=== PATIENT | male | born 1935 | race Two or more races ===

== ENCOUNTER 2016-04-15 15:02 | Inpatient (IN) | payer MEDICARE, OTHER ==
[~2016-04-15] VITALS: Ht 172.7 cm; Wt 74.4 kg
[2016-04-15] MEDS ORDERED: ALBUTEROL FS 2.5 MG/3 ML VIAL.NEB NEB ONE (15:30)
[2016-04-15] MEDS ORDERED: methylPREDNISolone SOD SUCC 125 MG/2ML VIAL IV ONE (15:30)
[2016-04-15] MEDS ORDERED: IPRATROPIUM NEB FS 0.5 MG/2.5 ML AMPUL.NEB NEB ONE (15:30)
[2016-04-15] MEDS ORDERED: methylPREDNISolone SOD SUCC 125 MG/2ML VIAL ONE (15:33)
[2016-04-15 15:42] LABS: BASOPHILS % (AUTO) 0.3 % (0.0-2.0); DIFF TOTAL % 100 %; EOSINOPHILS # (AUTO) 0.3 /CMM (0.0-0.7); EOSINOPHILS % (AUTO) 2.6 % (0.0-6.0); HEMATOCRIT 41 % (39-51); HEMOGLOBIN 13.4 g/dL (13.5-17.5); LYMPHOCYTES # (AUTO) 2.1 /CMM (0.8-4.8); LYMPHOCYTES % (AUTO) 17.9 % (20.0-44.0); MEAN CORPUSCULAR HEMOGLOBIN 28 PG (26.0-33.0); MEAN CORPUSCULAR HGB CONC 32 g/dl (31.0-36.0); MEAN CORPUSCULAR VOLUME 87 fL (80-96); MONOCYTES # (AUTO) 0.5 /CMM (0.1-1.30); MONOCYTES % (AUTO) 4.5 % (2.0-12.0); NEUTROPHILS # (AUTO) 8.6 /CMM (1.8-8.9); NEUTROPHILS % (AUTO) 74.7 % (43.0-81.0); PLATELET COUNT (AUTO) 239 /CMM (150-450); RED BLOOD CELL COUNT(AUTO) 4.76 MIL/uL (4.5-6.0); WHITE BLOOD COUNT (AUTO) 11.5 K/uL (4.3-11.0)
[2016-04-15] MEDS ORDERED: ALBUTEROL FS 2.5 MG/3 ML VIAL.NEB ONE (15:52)
[2016-04-15] MEDS ORDERED: IPRATROPIUM NEB FS 0.5 MG/2.5 ML AMPUL.NEB ONE (15:52)
[2016-04-15 15:56] LABS: CALCIUM, SERUM 8.8 mg/dL (8.5-10.1); POTASSIUM 4.1 mmol/L (3.5-5.1)
[2016-04-15 16:04] LABS: TROPONIN I 0.032 ng/mL (0.00-0.056)
[2016-04-15 16:08] LABS: ALBUMIN 3.3 g/dL (3.4-5.0); BILIRUBIN,DIRECT 0.1 mg/dL (0.0-0.2); BILIRUBIN,TOTAL 0.8 mg/dL (0.2-1.0); INDIRECT BILIRUBIN 0.7 mg/dL (0.0-1.1); TOTAL PROTEIN, SERUM 6.6 g/dL (6.4-8.2)
[2016-04-15] MEDS ORDERED: HYDROCODONE/APAP 5/325MG 1 EACH TABLET PO PRN (17:30)
[2016-04-15] MEDS ORDERED: Z GUARD REMEDY 2 OZ OINT TP PRN (17:30)
[2016-04-15] MEDS ORDERED: MAG HYDROX/AL HYDROX/SIMETH 30 ML UDC PO PRN (17:30)
[2016-04-15] MEDS: ENOXAPARIN SODIUM 40 MG/0.4 ML DISP.SYRIN SQ SCH (17:30)
[2016-04-15] MEDS ORDERED: ACETAMINOPHEN 325 MG TABLET PO PRN (17:30)
[2016-04-15] MEDS ORDERED: ONDANSETRON HCL/PF 4 MG/2 ML VIAL IVP PRN (17:30)
[2016-04-15] MEDS ORDERED: ZOLPIDEM TARTRATE 5 MG TABLET PO PRN (17:30)
[2016-04-15] MEDS ORDERED: ALBUTEROL FS 2.5 MG/0.5 ML VIAL.NEB NEB ONE (17:30)
[2016-04-15] MEDS ORDERED: LORAZEPAM 0.5 MG TABLET PO PRN (17:30)
[2016-04-15] MEDS: FUROSEMIDE 40 MG/4 ML VIAL IV SCH (18:01)
[2016-04-15] MEDS ORDERED: AMIO100T4 PO (18:30)
[2016-04-15] MEDS ORDERED: AMLO10TA2 PO (18:30)
[2016-04-15] MEDS ORDERED: ASPI81TA44 PO (18:30)
[2016-04-15] MEDS ORDERED: METO-302 PO (18:30)
[2016-04-15] MEDS ORDERED: OMEG1CAP40 PO (18:30)
[2016-04-15] MEDS ORDERED: FINA5TAB4 PO (18:30)
[2016-04-15] MEDS ORDERED: CLOP75TA2 PO (18:30)
[2016-04-15] MEDS ORDERED: ROSU10TA PO (18:30)
[2016-04-15] MEDS ORDERED: CLON1PAT13 TD (18:30)
[2016-04-15] MEDS ORDERED: IBUP-1955 PO (18:30)
[2016-04-15] MEDS ORDERED: CLOP100P MC (18:30)
[2016-04-15] MEDS ORDERED: VALS160T24 PO (18:30)
[2016-04-15 18:56] VITALS: BP 145/67
[2016-04-15] MEDS: methylPREDNISolone SOD SUCC 125 MG/2ML VIAL IV SCH (21:05)
[2016-04-15 22:00] VITALS: BP 129/73
[2016-04-16] VITALS: BP 131/70
[2016-04-16 04:00] VITALS: BP 132/81
[2016-04-16 07:10] LABS: BASOPHILS % (AUTO) 0.1 % (0.0-2.0); DIFF TOTAL % 100 %; HEMATOCRIT 44 % (39-51); HEMOGLOBIN 14.2 g/dL (13.5-17.5); LYMPHOCYTES # (AUTO) 1.4 /CMM (0.8-4.8); LYMPHOCYTES % (AUTO) 15.8 % (20.0-44.0); MEAN CORPUSCULAR HEMOGLOBIN 29 PG (26.0-33.0); MEAN CORPUSCULAR HGB CONC 33 g/dl (31.0-36.0); MEAN CORPUSCULAR VOLUME 88 fL (80-96); MONOCYTES % (AUTO) 0.3 % (2.0-12.0); NEUTROPHILS # (AUTO) 7.4 /CMM (1.8-8.9); NEUTROPHILS % (AUTO) 83.8 % (43.0-81.0); PLATELET COUNT (AUTO) 248 /CMM (150-450); RED BLOOD CELL COUNT(AUTO) 4.99 MIL/uL (4.5-6.0); WHITE BLOOD COUNT (AUTO) 8.9 K/uL (4.3-11.0)
[2016-04-16 08:00] VITALS: BP 129/66
[2016-04-16 08:05] LABS: CALCIUM, SERUM 9.2 mg/dL (8.5-10.1); CREATININE 1.1 mg/dL (0.6-1.3); PHOSPHORUS 2.9 mg/dL (2.5-4.9); POTASSIUM 3.9 mmol/L (3.5-5.1)
[2016-04-16] MEDS: MAGNESIUM HYDROXIDE 30 ML UDC PO PRN (11:19)
[2016-04-16] MEDS: FINASTERIDE (5 MG) 5 MG TABLET PO SCH (11:20)
[2016-04-16] MEDS: VALSARTAN 80 MG TABLET PO SCH ×2 (11:20→18:13)
[2016-04-16] MEDS: ASPIRIN EC 81 MG TABLET.DR PO SCH (11:20)
[2016-04-16] MEDS: IBUPROFEN 600 MG TABLET PO SCH ×2 (11:20→18:11)
[2016-04-16] MEDS: CLOPIDOGREL BISULFATE 75 MG TABLET PO SCH (11:20)
[2016-04-16] MEDS: AMIODARONE HCL 200 MG TABLET PO SCH (11:21)
[2016-04-16] MEDS: AMLODIPINE BESYLATE 10 MG TABLET PO SCH (11:21)
[2016-04-16] MEDS: ATORVASTATIN 10 MG TABLET PO SCH (11:22)
[2016-04-16] MEDS: PANTOPRAZOLE 40 MG TABLET.DR PO SCH (11:22)
[2016-04-16] MEDS: METOPROLOL SUCCINATE 25 MG TAB.SR.24H PO SCH (11:22)
[2016-04-16 11:24] LABS: THYROID STIMULATING HORMONE 0.414 uIU/mL (0.358-3.74)
[2016-04-16] MEDS: FUROSEMIDE 40 MG/4 ML VIAL IV SCH (11:24)
[2016-04-16] MEDS: methylPREDNISolone SOD SUCC 125 MG/2ML VIAL IV SCH ×4 (11:24→21:07)
[2016-04-16 12:00] VITALS: BP 142/66
[2016-04-16 16:00] VITALS: BP 117/52
[2016-04-16 20:00] VITALS: BP 139/71
[2016-04-16] MEDS: ENOXAPARIN SODIUM 40 MG/0.4 ML DISP.SYRIN SQ SCH (21:07)
[2016-04-17 08:00] VITALS: BP 143/73
[2016-04-17] MEDS ORDERED: FUROSEMIDE 40 MG TABLET PO SCH (09:00)
[2016-04-17] MEDS ORDERED: POTASSIUM CHLORIDE 20 MEQ TAB.PRT.SR PO SCH (09:00)
[2016-04-17 09:09] LABS: BILIRUBIN,TOTAL 0.8 mg/dL (0.2-1.0); CALCIUM, SERUM 9.5 mg/dL (8.5-10.1); PHOSPHORUS 4.6 mg/dL (2.5-4.9)
[2016-04-17 09:10] LABS: ALBUMIN 3.9 g/dL (3.4-5.0); TOTAL PROTEIN, SERUM 8.1 g/dL (6.4-8.2)
[2016-04-17] MEDS: MAGNESIUM HYDROXIDE 30 ML UDC PO PRN (09:47)
[2016-04-17] MEDS: PANTOPRAZOLE 40 MG TABLET.DR PO SCH (09:48)
[2016-04-17] MEDS: methylPREDNISolone SOD SUCC 125 MG/2ML VIAL IV SCH (09:48)
[2016-04-17] MEDS: ATORVASTATIN 10 MG TABLET PO SCH (09:48)
[2016-04-17] MEDS: IBUPROFEN 600 MG TABLET PO SCH (09:48)
[2016-04-17] MEDS: ASPIRIN EC 81 MG TABLET.DR PO SCH (09:48)
[2016-04-17] MEDS: FINASTERIDE (5 MG) 5 MG TABLET PO SCH (09:49)
[2016-04-17] MEDS: AMIODARONE HCL 200 MG TABLET PO SCH (09:49)
[2016-04-17] MEDS: CLOPIDOGREL BISULFATE 75 MG TABLET PO SCH (09:49)
[2016-04-17] MEDS: METOPROLOL SUCCINATE 25 MG TAB.SR.24H PO SCH (09:50)
[2016-04-17] MEDS: VALSARTAN 80 MG TABLET PO SCH (09:51)
[2016-04-17] MEDS: AMLODIPINE BESYLATE 10 MG TABLET PO SCH (09:55)
[2016-04-17 14:00] VITALS: BP 112/52
[2016-04-17] MEDS ORDERED: FLU VACC QS 2016-17(36MOS+)/PF 0.5 ML DISP.SYRIN IM ONE (15:00)
[2016-04-17] MEDS ORDERED: PNEUMOCOCCAL 23-VAL P-SAC VAC 0.5 ML VIAL SQ ONE (15:00)
== END 2016-04-17 15:30 | disposition home or self-care (01) | DRG 190 ==
LOC: ER 15:04 → TELE 16:52 → MED 04-16 11:39
PROVIDERS: ADMIT Internal Medicine; ATTEND Internal Medicine
DX: J44.1 Chronic obstructive pulmonary disease with (acute) exacerbation (principal); I50.23 Acute on chronic systolic (congestive) heart failure; J98.11 Atelectasis; I25.10 Atherosclerotic heart disease of native coronary artery without angina pectoris; E78.5 Hyperlipidemia, unspecified; I10 Essential (primary) hypertension; F41.9 Anxiety disorder, unspecified; F17.210 Nicotine dependence, cigarettes, uncomplicated; R09.89 Other specified symptoms and signs involving the circulatory and respiratory systems; I27.2 Other secondary pulmonary hypertension; I34.0 Nonrheumatic mitral (valve) insufficiency; I50.9 Heart failure, unspecified; I44.7 Left bundle-branch block, unspecified; Z87.01 Personal history of pneumonia (recurrent)
CPT/HCPCS: 36415; 71010-TC; 80048-TC; 80053-TC; 80076-TC; 82306; 83735-TC; 83880; 84100-TC; 84439-TC; 84443-TC; 84484-TC; 85025-TC; 87081-TC; 90732; 93307-TC; A4606; J1650; J1940; J2930; Q2036; Z7610

== ENCOUNTER 2016-07-13 12:00 | Inpatient (IN) | payer MEDICARE, OTHER ==
[~2016-07-13] VITALS: Ht 165.1 cm; Wt 86.2 kg
[~2016-07-13 12:00] MED LIST: AMIO100T4 PO; AMLO10TA2 PO; ASPI81TA44 PO; CLON1PAT13 TD; CLOP100P MC; CLOP75TA2 PO; FINA5TAB4 PO; IBUP-1955 PO; METO-302 PO; OMEG1CAP40 PO; ROSU10TA PO; VALS160T24 PO
[2016-07-13] MEDS ORDERED: FUROSEMIDE 40 MG/4 ML VIAL IV ONE (13:00)
[2016-07-13] MEDS ORDERED: FUROSEMIDE 40 MG/4 ML VIAL ONE (13:01)
--- NOTE | 2016-07-13 13:08 | NUR ---
TRACY AT BS.
[2016-07-13 13:17] LABS: BASOPHILS % (AUTO) 0.4 % (0.0-2.0); EOSINOPHILS # (AUTO) 0.2 /CMM (0.0-0.7); EOSINOPHILS % (AUTO) 1.6 % (0.0-6.0); HEMATOCRIT 43 % (39-51); HEMOGLOBIN 13.9 g/dL (13.5-17.5); LYMPHOCYTES # (AUTO) 1.7 /CMM (0.8-4.8); MEAN CORPUSCULAR HEMOGLOBIN 27 PG (26.0-33.0); MEAN CORPUSCULAR HGB CONC 32 g/dl (31.0-36.0); MEAN CORPUSCULAR VOLUME 84 fL (80-96); MONOCYTES # (AUTO) 0.5 /CMM (0.1-1.30); MONOCYTES % (AUTO) 5.2 % (2.0-12.0); NEUTROPHILS % (AUTO) 76.8 % (43.0-81.0); PLATELET COUNT (AUTO) 233 /CMM (150-450); RDW COEFFICIENT OF VARIATION 14.5 (11.5-15.0); WHITE BLOOD COUNT (AUTO) 10.4 K/uL (4.3-11.0)
[2016-07-13 13:35] LABS: CALCIUM, SERUM 9.1 mg/dL (8.5-10.1); CREATININE 1.1 mg/dL (0.6-1.3)
[2016-07-13 13:43] LABS: TROPONIN I 0.031 ng/mL (0.00-0.056)
[2016-07-13 13:45] LABS: INR 1.05 (0.87-1.13); PROTHROMBIN TIME 10.9 SECS (9.5-12.7)
--- NOTE | 2016-07-13 14:17 | NUR ---
PT ASSIGNED TELEMETRY BED 112-1 NURSE IS SUNDAY
--- NOTE | 2016-07-13 14:24 | NUR ---
REPORT GIVEN TO SUNDAY BELL FOR TELE ROOM 112-1
--- NOTE | 2016-07-13 14:25 | NUR ---
TELE1/RN REPORT FROM ER RECEIVED REPORT FROM ER NURSE ROSETTA FOR PT TO BE ADMITTED FOR CHF, UNDER THE CARE OF DR. GUAMAN. AWAITING FOR PT'S ARRIVAL.
[2016-07-13] MEDS ORDERED: ZOLPIDEM TARTRATE 5 MG TABLET PO PRN ×2 (14:30→15:00)
[2016-07-13] MEDS ORDERED: MAG HYDROX/AL HYDROX/SIMETH 30 ML UDC PO PRN ×2 (14:30→15:00)
[2016-07-13] MEDS ORDERED: ACETAMINOPHEN 325 MG TABLET PO PRN ×2 (14:30→15:00)
[2016-07-13] MEDS ORDERED: MAGNESIUM HYDROXIDE 30 ML UDC PO PRN ×2 (14:30→15:00)
[2016-07-13] MEDS ORDERED: Z GUARD REMEDY 2 OZ OINT TP PRN ×2 (14:30→15:00)
[2016-07-13] MEDS ORDERED: ONDANSETRON HCL/PF 4 MG/2 ML VIAL IVP PRN ×2 (14:30→15:00)
[2016-07-13] MEDS ORDERED: HYDROCODONE/APAP 5/325MG 1 EACH TABLET PO PRN ×2 (14:30→15:00)
--- NOTE | 2016-07-13 15:00 | NUR ---
TELE1/FUNERAL HOME GENERAL MANAGER TO TELE1 - ROOM 112 #1 PT ARRIVED IN UNIT VIA GURNEY. PT AMBULATED FROM GURNEY TO BED, WITH STEADY GAIT. PT A/O X 4, CAYMAN ISLANDER AND [place]ER SPEAKING, NO SHORTNESS OF BREATH NOTED. ON ROOM AIR SATURATING @ 100%, TELEMETRY READING, SINUS VINNY, HR 55. IV SITE FLUSHED, PATENT WITH NO S/S OF INFECTION. LUNG SOUNDS NOTED WITH MINIMAL WHEEZING BILATERALLY. NO EDEMA NOTED. SKIN INTACT. PT IS COMFORTABLE. AWAITING FOR ADMITTING ORDERS. CL WITHIN REACHED AND SAFETY MAINTAINED. ON GOING MONITORING.
[2016-07-13 16:00] VITALS: BP 133/79
[2016-07-13] MEDS ORDERED: CLON0.1T PO (16:21)
[2016-07-13] MEDS ORDERED: CARV12.52 PO (16:29)
[2016-07-13] MEDS ORDERED: ISOS30TA6 PO (16:29)
[2016-07-13] MEDS ORDERED: BENA40TA2 PO (16:29)
[2016-07-13] MEDS ORDERED: FURO40TA5 PO (16:29)
[2016-07-13] MEDS ORDERED: IBUPROFEN 600 MG TABLET PO SCH (17:00)
[2016-07-13] MEDS ORDERED: VALSARTAN 80 MG TABLET PO SCH (17:00)
[2016-07-13] MEDS ORDERED: CLONIDINE HCL 0.1 MG TABLET PO PRN (17:00)
[2016-07-13] MEDS: IBUPROFEN 600 MG TABLET PO SCH (17:53)
[2016-07-13] MEDS: VALSARTAN 80 MG TABLET PO SCH (17:54)
[2016-07-13] MEDS ORDERED: CLONIDINE HCL 0.2MG/24H PTWK 1 EA PATCH TD SCH ×2 (18:00)
[2016-07-13 20:00] VITALS: BP 147/64
--- NOTE | 2016-07-13 20:00 | NUR ---
TELE1/RN AM SHIFT END NOTES NO ACUTE CHANGE OF CONDITION NOTED SINCE PT WAS ADMITTED IN THE UNIT. NEEDS MET. PT ENDORSED TO PM NURSE TO CONTINUE CARE. CL WITHIN REACHED AND SAFETY MAINTAINED.
--- NOTE | 2016-07-13 20:39 | NUR ---
2D ECHO TO BE DONE TODAY, MILK BOTTLING MACHINE OPERATOR AT BEDSIDE. PER TECH PATIENT HAD 2D ECHO IN MARCH THIS YEAR. REPORT PLACED IN CHART.
[2016-07-13] MEDS: ATORVASTATIN 10 MG TABLET PO SCH (21:46)
[2016-07-13] MEDS ORDERED: ATORVASTATIN 10 MG TABLET PO SCH (22:00)
[2016-07-14] VITALS: BP_SYST 139; BP_SYST 146; BP_DIAS 69; BP_DIAS 74
[2016-07-14 04:00] VITALS: BP 160/70
[2016-07-14 06:35] LABS: BASOPHILS % (AUTO) 0.3 % (0.0-2.0); EOSINOPHILS # (AUTO) 0.4 /CMM (0.0-0.7); EOSINOPHILS % (AUTO) 4.4 % (0.0-6.0); HEMATOCRIT 46 % (39-51); HEMOGLOBIN 14.4 g/dL (13.5-17.5); MEAN CORPUSCULAR HEMOGLOBIN 27 PG (26.0-33.0); MEAN CORPUSCULAR HGB CONC 32 g/dl (31.0-36.0); MEAN CORPUSCULAR VOLUME 85 fL (80-96); MONOCYTES # (AUTO) 0.6 /CMM (0.1-1.30); MONOCYTES % (AUTO) 6.2 % (2.0-12.0); NEUTROPHILS # (AUTO) 6.9 /CMM (1.8-8.9); NEUTROPHILS % (AUTO) 69.1 % (43.0-81.0); PLATELET COUNT (AUTO) 241 /CMM (150-450); RDW COEFFICIENT OF VARIATION 15.2 (11.5-15.0); RED BLOOD CELL COUNT(AUTO) 5.35 MIL/uL (4.5-6.0)
[2016-07-14 06:37] LABS: CALCIUM, SERUM 8.9 mg/dL (8.5-10.1); CREATININE 1.1 mg/dL (0.6-1.3); POTASSIUM 3.3 mmol/L (3.5-5.1)
--- NOTE | 2016-07-14 07:28 | NUR ---
CASE SEALER CLOSING NOTES NO SIGNIFICANT CHANGES OVERNIGHT, NO COMPLAINS OF SOB, N/V. NO S/SX OF ACUTE DISTRESS NOTED. PT ON NASAL CANNULA 2L, AND TOLERATING IT WELL. ON STRICT I/O, ON TELE MONITOR SINUS VINNY, MOTIVATED OF SELF CARE, ALL NEEDS MET, CALL LIGHT WITHIN REACH. ENDORSED TO THE AM NURSE FOR CONTINUE OF CARE.
--- NOTE | 2016-07-14 07:30 | NUR ---
RN ENT INITIAL NOTES PT SITTING UP IN BED, NO COMPLAINS OF SOB, NO S/SX OF ACUTE DISTRESS NOTED. PT ON ROOM AIR SATURATING 97%, AND TOLERATING IT WELL. IV SL R UPPER ARM PATENT AND FLUSHED, ON STRICT I/O, USES URINAL, ON TELE MONITOR SINUS VINNY 50, MOTIVATED OF SELF CARE, BED LOCKED AND IN LOWEST POSITION, CALL LIGHTS WITHIN REACH.
[2016-07-14 08:00] VITALS: BP 142/61
--- NOTE | 2016-07-14 08:00 | NUR ---
TELE1/RN AM SHIFT INITIAL NOTES RECEIVED PT AWAKE SITTING IN BED, PT A/O X 4. DENIES ANY SYMPTOMS. NO ACUTE CHANGE OF CONDITION NOTED. ON ROOM AIR SATURATING @ 95%, LUNG SOUNDS CLEAR. ON TELE WITH SINUS VINNY, HR 53. IV SITE FLUSHED, PATENT WITH NO S/S OF INFECTION. HL. SCHEDULED AM MEDS TO BE GIVEN. PT IS COMFORTABLE AT THIS TIME. CL WITHIN REACHED AND SAFETY MAINTAINED. ON GOING MONITORING.
[2016-07-14] MEDS: VALSARTAN 80 MG TABLET PO SCH ×2 (08:43→16:51)
[2016-07-14] MEDS: ASPIRIN EC 81 MG TABLET.DR PO SCH (08:43)
[2016-07-14] MEDS: AMLODIPINE BESYLATE 10 MG TABLET PO SCH (08:43)
[2016-07-14] MEDS: IBUPROFEN 600 MG TABLET PO SCH ×2 (08:43→16:52)
[2016-07-14] MEDS: FINASTERIDE (5 MG) 5 MG TABLET PO SCH (08:44)
[2016-07-14] MEDS: AMIODARONE HCL 200 MG TABLET PO SCH (08:44)
[2016-07-14] MEDS: CLOPIDOGREL BISULFATE 75 MG TABLET PO SCH (08:44)
[2016-07-14] MEDS: METOPROLOL SUCCINATE 25 MG TAB.SR.24H PO SCH (08:44)
[2016-07-14] MEDS ORDERED: METOPROLOL SUCCINATE 25 MG TAB.SR.24H PO SCH (09:00)
[2016-07-14] MEDS ORDERED: CLOPIDOGREL BISULFATE 75 MG TABLET PO SCH (09:00)
[2016-07-14] MEDS ORDERED: AMIODARONE HCL 200 MG TABLET PO SCH (09:00)
[2016-07-14] MEDS ORDERED: ASPIRIN EC 81 MG TABLET.DR PO SCH (09:00)
[2016-07-14] MEDS ORDERED: AMLODIPINE BESYLATE 10 MG TABLET PO SCH (09:00)
[2016-07-14] MEDS ORDERED: Medication Not On Formulary EA (Rosuvastatin Calcium (Crestor) 10 MG) PO SCH (09:00)
[2016-07-14] MEDS ORDERED: Medication Not On Formulary EA (Omega-3 Fatty Acids/Fish Oil (Omega 3 1,000 Mg Softgel) PO SCH (09:00)
[2016-07-14] MEDS ORDERED: FINASTERIDE (5 MG) 5 MG TABLET PO SCH (09:00)
[2016-07-14] MEDS ORDERED: POTASSIUM CHLORIDE 20 MEQ TAB.PRT.SR PO SCH (10:30)
--- NOTE | 2016-07-14 11:10 | NUR ---
TELE1/RN CODE STATUS - CONFIRMED WITH PT'S SON AT BEDSIDE INTERPRETING. CODE STATUS VERIFIED THAT PT'S WANT FULL CODE WITH COMPRESSION ONLY, NO INTUBATION. CHARGE NURSE MADE AWARE.
[2016-07-14] MEDS ORDERED: BUMETANIDE INJ 8 MG in IV NS 0.9% 48 ML IV ONE (11:30)
[2016-07-14 11:36] LABS: TROPONIN I 0.031 ng/mL (0.00-0.056)
[2016-07-14 11:58] LABS: THYROID STIMULATING HORMONE 1.819 uIU/mL (0.358-3.74)
[2016-07-14 12:00] VITALS: BP 146/67
--- NOTE | 2016-07-14 12:00 | NUR ---
TELE1/RN NOON ROUNDS NO ACUTE CHANGE OF CONDITION NOTED. PT IS COMFORTABLE, MONITORING CONTINUED.
[2016-07-14] MEDS ORDERED: IV NS 0.9% 250 ML IV ONE (12:13)
[2016-07-14] MEDS ORDERED: SECONDARY IV SET 1 EA INFUS.SET MC ONE (12:13)
[2016-07-14] MEDS ORDERED: IV SET PRIMARY PUMP SET 1 EA INFUS.SET MC ONE (12:13)
[2016-07-14] MEDS: POTASSIUM CHLORIDE 20 MEQ TAB.PRT.SR PO SCH ×3 (12:21→15:24)
[2016-07-14] MEDS ORDERED: BUMETANIDE INJ 2 MG in IV NS 0.9% 32 ML IV ONE ×4 (14:30)
[2016-07-14 16:00] VITALS: BP 131/58
[2016-07-14] MEDS: CARVEDILOL 12.5 MG TABLET PO SCH (16:52)
[2016-07-14] MEDS: CLONIDINE HCL 0.1 MG TABLET PO SCH (18:05)
--- NOTE | 2016-07-14 19:14 | NUR ---
TELE1/RN AM SHIFT END NOTES NO ACUTE CHANGE OF CONDITION NOTED DURING THE SHIFT, LUNG SOUNDS IMPROVED COMPARED TO YESTERDAY. ALL NEEDS MET. PT ENDORSED TO PM NURSE TO CONTINUE CARE. CL WITHIN REACHED AND SAFETY MAINTAINED.
[2016-07-14 20:00] VITALS: BP 106/66
[2016-07-14] MEDS: ATORVASTATIN 10 MG TABLET PO SCH (21:36)
[2016-07-15] VITALS: BP 120/50
[2016-07-15] MEDS: CLONIDINE HCL 0.1 MG TABLET PO SCH ×2 (00:17→06:40)
[2016-07-15 04:00] VITALS: BP 115/58
[2016-07-15 07:14] LABS: BASOPHILS % (AUTO) 0.4 % (0.0-2.0); EOSINOPHILS # (AUTO) 0.5 /CMM (0.0-0.7); EOSINOPHILS % (AUTO) 5.2 % (0.0-6.0); HEMATOCRIT 45 % (39-51); HEMOGLOBIN 14.5 g/dL (13.5-17.5); LYMPHOCYTES # (AUTO) 2.2 /CMM (0.8-4.8); LYMPHOCYTES % (AUTO) 23.8 % (20.0-44.0); MEAN CORPUSCULAR HEMOGLOBIN 28 PG (26.0-33.0); MEAN CORPUSCULAR HGB CONC 32 g/dl (31.0-36.0); MEAN CORPUSCULAR VOLUME 85 fL (80-96); MONOCYTES # (AUTO) 0.7 /CMM (0.1-1.30); MONOCYTES % (AUTO) 7.9 % (2.0-12.0); NEUTROPHILS # (AUTO) 5.9 /CMM (1.8-8.9); NEUTROPHILS % (AUTO) 62.7 % (43.0-81.0); PLATELET COUNT (AUTO) 254 /CMM (150-450); RDW COEFFICIENT OF VARIATION 15.3 (11.5-15.0); RED BLOOD CELL COUNT(AUTO) 5.27 MIL/uL (4.5-6.0); WHITE BLOOD COUNT (AUTO) 9.4 K/uL (4.3-11.0)
[2016-07-15 07:29] LABS: TROPONIN I 0.022 ng/mL (0.00-0.056)
[2016-07-15 07:37] LABS: ALBUMIN 3.3 g/dL (3.4-5.0); BILIRUBIN,TOTAL 0.9 mg/dL (0.2-1.0); CALCIUM, SERUM 8.6 mg/dL (8.5-10.1); CREATININE 1.5 mg/dL (0.6-1.3); MAGNESIUM 2.1 mg/dL (1.8-2.4); PHOSPHORUS 4.4 mg/dL (2.5-4.9); POTASSIUM 3.8 mmol/L (3.5-5.1); TOTAL PROTEIN, SERUM 7.1 g/dL (6.4-8.2)
--- NOTE | 2016-07-15 07:53 | NUR ---
FUNCTIONAL CONSULTANT CLOSING NOTES NO SIGNIFICANT CHANGES OVERNIGHT, NO S/SX OF ACUTE DISTRESS NOTED. ON ROOM AIR SATURATING 98%, NO COMPLAINS OF SOB OR CHEST PAIN. ON STRICT I/O, ON TELE MONITOR SINUS VINNY 50, MOTIVATED OF SELF CARE, ASSISTED WITH AM ADLS, ALL NEEDS MET, CALL LIGHT WITHIN REACH. ENDORSED TO THE AM NURSE FOR CONTINUE OF CARE
[2016-07-15 08:00] VITALS: BP 126/64
[2016-07-15] MEDS ORDERED: BENAZEPRIL HCL 10 MG TABLET PO SCH (09:00)
[2016-07-15] MEDS ORDERED: ISOSORBIDE MONONITRATE (30MG) 30 MG TAB.SR.24H PO SCH (09:00)
[2016-07-15] MEDS: AMIODARONE HCL 200 MG TABLET PO SCH ×2 (09:00→09:11)
[2016-07-15] MEDS: CLOPIDOGREL BISULFATE 75 MG TABLET PO SCH (09:10)
[2016-07-15] MEDS: IBUPROFEN 600 MG TABLET PO SCH (09:10)
[2016-07-15] MEDS: AMLODIPINE BESYLATE 10 MG TABLET PO SCH (09:10)
[2016-07-15] MEDS: FINASTERIDE (5 MG) 5 MG TABLET PO SCH (09:10)
[2016-07-15] MEDS: CARVEDILOL 12.5 MG TABLET PO SCH (09:12)
[2016-07-15] MEDS: ASPIRIN EC 81 MG TABLET.DR PO SCH (09:14)
[2016-07-15] MEDS: METOPROLOL SUCCINATE 25 MG TAB.SR.24H PO SCH (11:06)
[2016-07-15 11:07] VITALS: BP 105/69
[2016-07-15] MEDS: VALSARTAN 80 MG TABLET PO SCH (11:07)
--- NOTE | 2016-07-15 11:09 | NUR ---
FLACA/RN: NOTES VERIFIED WITH DR. ROWENA GOMEZ TO GAVE ALL BP MEDICATIONS PER NETWORK DEVELOPER.
--- NOTE | 2016-07-15 12:15 | NUR ---
Valarie/RN: notes all discharge instruction gave to patient and his [id number], verbalize understanding, all patient's belongings and valuable returned and signed by patient, IV h/l removed from right AV, no bleeding noted, home medication and Rx education provided to patient, informed patient to follow up an appointment with Dr. Friedman for stress test and PCP in 2- 3 days, patient aware and agreed. patient is discharge via wheel chair with stable condition, patient denies chest pain, no shortness of breath noted.
[2016-07-16] MEDS ORDERED: REGADENOSON 0.4 MG/5 ML DISP.SYRIN IVP ONE (08:00)
== END 2016-07-15 13:03 | disposition home or self-care (01) | DRG 292 ==
LOC: ER 12:05 → TELE1 15:56 → MEDSG1 07-15 07:27
PROVIDERS: ADMIT Family Medicine; ATTEND Family Medicine
DX: I11.0 Hypertensive heart disease with heart failure (principal); N17.9 Acute kidney failure, unspecified; E78.5 Hyperlipidemia, unspecified; J44.9 Chronic obstructive pulmonary disease, unspecified; I25.10 Atherosclerotic heart disease of native coronary artery without angina pectoris; N40.0 Benign prostatic hyperplasia without lower urinary tract symptoms; R00.1 Bradycardia, unspecified; I50.43 Acute on chronic combined systolic (congestive) and diastolic (congestive) heart failure; T50.2X5A Adverse effect of carbonic-anhydrase inhibitors, benzothiadiazides and other diuretics, initial encounter; Y92.009 Unspecified place in unspecified non-institutional (private) residence as the place of occurrence of the external cause
CPT/HCPCS: 36415; 71010-TC; 80048-TC; 80053-TC; 80061-TC; 82962-TC; 83735-TC; 83880; 84100-TC; 84439-TC; 84443-TC; 84484-TC; 85025-TC; 85730-TC; 87081-TC; 94799-TC; A4216; A4606; J1940; J3490; J7050; Z7610

== ENCOUNTER 2016-07-20 11:58 | Inpatient (IN) | payer MEDICARE, MEDICAID ==
[~2016-07-20] VITALS: Ht 165.1 cm; Wt 85.3 kg
[~2016-07-20 11:58] MED LIST changes: -AMLO10TA2 PO; +BENA40TA2 PO; +CARV12.52 PO; +CLON0.1T PO; -CLON1PAT13 TD; -CLOP100P MC; -FINA5TAB4 PO; +FURO40TA5 PO; -IBUP-1955 PO; +ISOS30TA6 PO; -OMEG1CAP40 PO
[2016-07-20] MEDS ORDERED: ASPIRIN 325 MG TABLET ONE (12:14)
[2016-07-20] MEDS ORDERED: NITROGLYCERIN PACKET 1 GM PACKET ONE (12:14)
[2016-07-20] MEDS ORDERED: FUROSEMIDE 40 MG/4 ML VIAL ONE (12:14)
--- NOTE | 2016-07-20 12:15 | NUR ---
PT CAME IN FOR SOB X 1 YEAR, WORSENING IN THE PAST WEEK. SATING AT 95-96% RA. AT BS FOR EVAL. VSS. SAFETY AND COMFORT MEASURES PROVIDED.WILL MONITOR.
[2016-07-20 12:29] LABS: BASOPHILS # (AUTO) 0.1 /CMM (0.0-0.2); BASOPHILS % (AUTO) 0.5 % (0.0-2.0); EOSINOPHILS # (AUTO) 0.2 /CMM (0.0-0.7); EOSINOPHILS % (AUTO) 1.6 % (0.0-6.0); HEMATOCRIT 45 % (39-51); HEMOGLOBIN 14.6 g/dL (13.5-17.5); LYMPHOCYTES # (AUTO) 1.7 /CMM (0.8-4.8); LYMPHOCYTES % (AUTO) 15.7 % (20.0-44.0); MEAN CORPUSCULAR HEMOGLOBIN 28 PG (26.0-33.0); MEAN CORPUSCULAR HGB CONC 33 g/dl (31.0-36.0); MEAN CORPUSCULAR VOLUME 84 fL (80-96); MONOCYTES # (AUTO) 0.5 /CMM (0.1-1.30); MONOCYTES % (AUTO) 4.6 % (2.0-12.0); NEUTROPHILS # (AUTO) 8.5 /CMM (1.8-8.9); NEUTROPHILS % (AUTO) 77.6 % (43.0-81.0); PLATELET COUNT (AUTO) 224 /CMM (150-450); RDW COEFFICIENT OF VARIATION 14.3 (11.5-15.0); RED BLOOD CELL COUNT(AUTO) 5.31 MIL/uL (4.5-6.0)
[2016-07-20] MEDS ORDERED: NITROGLYCERIN PACKET 1 GM PACKET TD ONE (12:30)
[2016-07-20] MEDS ORDERED: FUROSEMIDE 40 MG/4 ML VIAL IV ONE (12:30)
[2016-07-20] MEDS ORDERED: ASPIRIN 325 MG TABLET PO ONE (12:30)
[2016-07-20 12:34] LABS: CALCIUM, SERUM 8.8 mg/dL (8.5-10.1); CREATININE 1.2 mg/dL (0.6-1.3); POTASSIUM 4.2 mmol/L (3.5-5.1)
[2016-07-20 12:38] LABS: INR 1.06 (0.87-1.13)
--- NOTE | 2016-07-20 12:38 | NUR ---
IV ACCESS STARTED. BLOOD DRAWN FOR LABS. PT MEDICATED ORDERED.
[2016-07-20 12:42] LABS: TROPONIN I 0.026 ng/mL (0.00-0.056)
[2016-07-20 12:47] LABS: ALBUMIN 3.4 g/dL (3.4-5.0); BILIRUBIN,DIRECT 0.3 mg/dL (0.0-0.2); BILIRUBIN,TOTAL 1.3 mg/dL (0.2-1.0); TOTAL PROTEIN, SERUM 7.2 g/dL (6.4-8.2)
--- NOTE | 2016-07-20 13:10 | NUR ---
ASSIGNED 309A NURSE SHANA KRAFT
--- NOTE | 2016-07-20 13:20 | NUR ---
REPORT GIVEN TO SWAPNIL BELL FOR TELE ROOM 309-1
--- NOTE | 2016-07-20 14:55 | NUR ---
JUNIOR ELECTRICAL ENGINEER ADMITTING NOTES PATIENT ADMITTED TO UNIT AT 1415 ACCOMPANIED BY [id number] AND ER STAFF VIA KATIE. ALERT AND ORIENTED X 4 WITH 02 VIA N/C AT 2 LPM, NO SIGNS OF RESPIRATORY DISTRESS OBSERVED AND DENIES ANY PAIN ON ADMISSION. PATIENT WITH DIAGNOSIS OF CHF WITH CHIEF COMPLAIN OF SOB X1 YEAR BUT WORSENING IN THE PAST WEEK. PATIENT ALSO HAVE SIGNIFICANT DIAGNOSIS OF COPD, HTN AND INGUINAL HERNIA REPAIR 10 YRS AGO. PATIENT ABLE TO AMBULATE AND TRANSFERRED TO BED WITHOUT PROBLEM. V/S TAKEN AND RECORDED. PHOTOS OF SKIN MOLES TO BACK, SWOLLEN SCROTOM AND DISCOLORATION TO LEFT HAND TAKEN AND FILED ON CHART. PATIENT PLACED ON TELE-MONITORING WITH READING OF SINUS VINNY WITH IST DEGREE HEART BLOCK AND HR OF 47, NO COMPLAINTS OF CHEST PAIN, DIZZINESS OR PALPITATION VOICED. ALL ROUTINE ADMISSION DONE. CALL LIGHT KEPT WITHIN REACH OF PATIENT. BED PLACE AT LOW POSSIBLE POSITION AND LOCK. MD MADE AWARE OF ADMISSION. WILL CONTINUE TO MONITOR PATIENT'S STATUS.
[2016-07-20] MEDS ORDERED: HYDROCODONE/APAP 5/325MG 1 EACH TABLET PO PRN (15:30)
[2016-07-20] MEDS ORDERED: Z GUARD REMEDY 2 OZ OINT TP PRN (15:30)
[2016-07-20] MEDS ORDERED: ONDANSETRON HCL/PF 4 MG/2 ML VIAL IVP PRN (15:30)
[2016-07-20] MEDS ORDERED: ZOLPIDEM TARTRATE 5 MG TABLET PO PRN (15:30)
[2016-07-20] MEDS ORDERED: MAGNESIUM HYDROXIDE 30 ML UDC PO PRN (15:30)
[2016-07-20] MEDS ORDERED: MAG HYDROX/AL HYDROX/SIMETH 30 ML UDC PO PRN (15:30)
[2016-07-20] MEDS ORDERED: ACETAMINOPHEN 325 MG TABLET PO PRN (15:30)
[2016-07-20 16:00] VITALS: BP 116/55
[2016-07-20 16:26] LABS: ABG BASE EXCESS -0.1 mmol/L; ABG OXYGEN SATURATION 92.7 % (92.0-98.5); ABG PCO2 37.1 mmHg (35.0-45.0); ABG PH 7.427 (7.350-7.450); ABG TOTAL HEMOGLOBIN 14.2 G/dL (13.5-18.0); AaDO2 43.3 mmHg; COHb 1.1 % (0.5-1.5); MetHb 0.4 % (0.0-1.5); O2Hb 91.3 % (94.0-97.0); SITE, ABG Right Radial; VENT MODE, BG ROOM AIR
[2016-07-20] MEDS: ASPIRIN EC 81 MG TABLET.DR PO SCH (16:47)
[2016-07-20] MEDS: CLOPIDOGREL BISULFATE 75 MG TABLET PO SCH (16:47)
[2016-07-20] MEDS: PANTOPRAZOLE 40 MG TABLET.DR PO SCH (16:47)
[2016-07-20] MEDS: CARVEDILOL 12.5 MG TABLET PO SCH (16:49)
[2016-07-20] MEDS: FUROSEMIDE 20 MG/2 ML VIAL IV SCH (16:51)
[2016-07-20] MEDS ORDERED: BUMETANIDE INJ 0.25 MG/ML VIAL IV SCH (17:00)
--- NOTE | 2016-07-20 17:16 | NUR ---
TELE/RN CLOSING NOTES PATIENT RESTING IN BED IN NO ACUTE SIGNS OF DISTRESS. ALERT AND ORIENTED X4, DENIES ANY PAIN OR DISCOMFORTS SINCE ADMISSION. MAINTAINED ON SUPPLEMENTAL 02 VIA N/C @ 2LPM, BREATHING WELL WITH NO SOB AT THIS TIME. ALL NEEDS AND CARE PROVIDED WELL. ALL DUE MEDS GIVEN ORDERED. IV ACCESS ON LEFT AC INTACT AND PATENT. BED IN LOWEST POSITION, LOCKED WITH SIDE-RAILS UP APPROPRIATE. CALL LIGHT WITHIN REACH. ALL SAFETY MEASURES MAINTAINED. ENDORSED TO CHLORINATOR NURSE TO CONTINUE CARE.
[2016-07-20] MEDS: CLONIDINE HCL 0.1 MG TABLET PO SCH (18:00)
--- NOTE | 2016-07-20 18:11 | NUR ---
RN NOTES PER RT, PT'S ABG RESULTS IS NORMAL. TROPONIN 1 LEVEL IS 0.032 AND BNP IS HIGH 2637. ALSO NOTED WITH BP OF 102/52MMHG AND HR OF 45 AT 6PM, MD MADE AWARE. WILL CONTINUE TO MONITOR PATIENT'S STATUS.
--- NOTE | 2016-07-20 19:30 | NUR ---
RN NOTES RECEIVED PT AWAKE ON BED, A/OX3, ARABIC/ CAY[place] ISLANDER SPEAKING BUT PT. CAN SPEAK A LITTLE BIT OF CROATIAN, AMBULATORY, GRANDSON AT BEDSIDE, SB ON TELE MONITOR HR-56, DENIES PAIN, NO SOB, CALL LIGHT WITHIN REACH, SIDERAILS UPX2 CONTINUE TO MONITOR
[2016-07-20 20:00] VITALS: BP 140/71
[2016-07-21] VITALS: BP_SYST 117; BP_SYST 120; BP_DIAS 68
[2016-07-21] MEDS: CLONIDINE HCL 0.1 MG TABLET PO SCH ×2 (00:05→06:00)
--- NOTE | 2016-07-21 00:30 | NUR ---
RN NOTES PT . COMPLAINED OF SOMETHING WRONG ON HIS HEART, CALLED ICU CHARGE NURSE WHO SPEAK BURUNDIAN. ICU CHARGE NURSE TALKED TO THE PT. AND EXPLAINED EVERYTHING . PUT OXYGEN AND CHECKED PT. V/S WHICH IS STABLE AND BLOOD SUGAR. ICU NURSE TOLD ME JUST MONITOR THE PT.
--- NOTE | 2016-07-21 00:45 | NUR ---
RN NOTES EKG DONE, -SAME RESULT WHEN PT ADMITTED
[2016-07-21] MEDS ORDERED: AMLO10TA4 PO (00:49)
[2016-07-21] MEDS ORDERED: FINA5TAB4 PO (00:49)
[2016-07-21] MEDS ORDERED: ROFL500T PO (00:49)
[2016-07-21] MEDS ORDERED: OMEG1CAP55 PO (00:49)
[2016-07-21] MEDS ORDERED: TEMA30CA PO (00:49)
[2016-07-21] MEDS ORDERED: METO25TA3 PO (00:49)
[2016-07-21] MEDS ORDERED: ROSU10TA PO (00:49)
[2016-07-21] MEDS ORDERED: CLON0.1T14 PO (00:49)
--- NOTE | 2016-07-21 01:00 | NUR ---
RN NOTES PT. MOVED TO ANOTHER ROOM BECAUSE ROOM MATE IS COMPLAINING ABOUT THE LIGHT WHILE MONITORING THE PT. PT MOVED TO ANOTHER ROOM AND DENIES ANY PAIN, PT. STATED OXYGEN HELPS HIM
[2016-07-21 04:00] VITALS: BP 143/70
--- NOTE | 2016-07-21 06:18 | NUR ---
RN NOTES CLONIDINE 0.1MG PO WAS NOT GIVEN AT THIS TIME, PT STATED HE'S TAKING IT ONLY NEEDED, CHECK PT. HOME MEDICATION IT'S ALSO WRITTEN TAKEN ONLY NEEDED
--- NOTE | 2016-07-21 06:45 | NUR ---
RN NOTES AWAKE, DENIES PAIN, NO SOB, MORNING CARE RENDERED. PT. NEEDS ATTENDED
[2016-07-21 06:56] VITALS: BP 135/61
--- NOTE | 2016-07-21 07:23 | NUR ---
TELE/RN OPENING NOTES RECEIVED PATIENT IN BED AWAKE, ALERT AND ORIENTED X4 IN NO ACUTE SIGNS OF DISTRESS. ABLE TO MAKE NEEDS KNOWN, DENIES PAIN OR DISCOMFORTS AT THIS TIME. ON TELE-MONITORING WITH CURRENT READING OF SINUS RHYTHM AND HR 65. ON 02 VIA N/C, TOLERATING WELL WITH SP02 OF 96%. IV ACCESS ON LEFT AC G#20 INTACT AND PATENT. BED IN LOWEST POSITION, LOCKED AND SIDE-RAILS UP APPROPRIATE. CALL LIGHT WITHIN REACH. ALL SAFETY MEASURES MAINTAINED. WILL CONTINUE TO MONITOR ACCORDINGLY.
[2016-07-21 07:51] LABS: BASOPHILS % (AUTO) 0.5 % (0.0-2.0); EOSINOPHILS # (AUTO) 0.4 /CMM (0.0-0.7); EOSINOPHILS % (AUTO) 4.5 % (0.0-6.0); HEMATOCRIT 45 % (39-51); HEMOGLOBIN 14.6 g/dL (13.5-17.5); LYMPHOCYTES # (AUTO) 2.1 /CMM (0.8-4.8); LYMPHOCYTES % (AUTO) 21.4 % (20.0-44.0); MEAN CORPUSCULAR HEMOGLOBIN 28 PG (26.0-33.0); MEAN CORPUSCULAR HGB CONC 33 g/dl (31.0-36.0); MEAN CORPUSCULAR VOLUME 85 fL (80-96); MONOCYTES # (AUTO) 0.6 /CMM (0.1-1.30); MONOCYTES % (AUTO) 6.5 % (2.0-12.0); NEUTROPHILS # (AUTO) 6.5 /CMM (1.8-8.9); NEUTROPHILS % (AUTO) 67.1 % (43.0-81.0); PLATELET COUNT (AUTO) 231 /CMM (150-450); RDW COEFFICIENT OF VARIATION 15.5 (11.5-15.0); RED BLOOD CELL COUNT(AUTO) 5.29 MIL/uL (4.5-6.0); WHITE BLOOD COUNT (AUTO) 9.6 K/uL (4.3-11.0)
[2016-07-21 08:00] VITALS: BP 134/71
[2016-07-21 08:30] LABS: ALBUMIN 3.2 g/dL (3.4-5.0); BILIRUBIN,TOTAL 0.8 mg/dL (0.2-1.0); CALCIUM, SERUM 8.7 mg/dL (8.5-10.1); CREATININE 1.2 mg/dL (0.6-1.3); MAGNESIUM 2.1 mg/dL (1.8-2.4); PHOSPHORUS 3.2 mg/dL (2.5-4.9); POTASSIUM 3.7 mmol/L (3.5-5.1)
[2016-07-21] MEDS: PANTOPRAZOLE 40 MG TABLET.DR PO SCH (08:41)
[2016-07-21] MEDS: ASPIRIN EC 81 MG TABLET.DR PO SCH (08:41)
[2016-07-21] MEDS: ATORVASTATIN 10 MG TABLET PO SCH (08:43)
[2016-07-21] MEDS: FUROSEMIDE 20 MG/2 ML VIAL IV SCH (08:44)
[2016-07-21] MEDS: CLOPIDOGREL BISULFATE 75 MG TABLET PO SCH (08:44)
[2016-07-21] MEDS: CARVEDILOL 12.5 MG TABLET PO SCH ×2 (08:44→21:00)
[2016-07-21] MEDS: VALSARTAN 80 MG TABLET PO SCH ×2 (08:49→16:56)
[2016-07-21] MEDS: ISOSORBIDE MONONITRATE (30MG) 30 MG TAB.SR.24H PO SCH (08:49)
[2016-07-21] MEDS ORDERED: BENAZEPRIL HCL 20 MG TABLET PO SCH (09:00)
[2016-07-21] MEDS: AMIODARONE HCL 200 MG TABLET PO SCH (09:30)
[2016-07-21] MEDS ORDERED: CLONIDINE HCL 0.1 MG TABLET PO PRN (10:00)
[2016-07-21] MEDS ORDERED: FUROSEMIDE 20 MG/2 ML VIAL IV ONE (10:30)
[2016-07-21 12:00] VITALS: BP 102/51
[2016-07-21 16:17] VITALS: BP 117/53
[2016-07-21] MEDS ORDERED: FUROSEMIDE 20 MG/2 ML VIAL IV SCH (17:00)
--- NOTE | 2016-07-21 18:45 | NUR ---
TELE/RN CLOSING NOTES PATIENT IN BED ALERT AND ORIENTED X3, NO COMPLAINTS OF PAIN OR ACUTE DISTRESS THROUGHOUT THE DAY. ALL NEEDS AND CARE PROVIDED. DUE MEDS GIVEN ORDERED AND TOLERATED. CONTINUES ON TELE MONITORING WITH CURRENT READINGS OF SINUS BRADYCARDIA WITH HR OF 56. ON SUPPLEMENTAL 02 VIA N/C @ 3LPM, BREATHING WELL WITH NO SOB NOTED. IV ACCESS ON LEFT AC INTACT AND PATENT. BED KEPT IN LOWEST POSITION, LOCKED WIT SIDE-RAILS UP X2. CALL LIGHT WITHIN REACH. ALL SAFETY MEASURES MAINTAINED. ENDORSED TO PREPARED FOODS PRODUCTION TEAM MEMBER FOR CANDIDA..
--- NOTE | 2016-07-21 19:35 | NUR ---
TELE/OPENING NOTES PATIENT IN BED , ALERT , ORIENTED X3. FAMILY AT BEDSIDE. NO S/S OF SOB OR DISTRESS. CALL LIGHTS WITHIN REACH, BED ON LOCK POSITION. WILL CONTINUE TO PROVIDE CARE AND MONITOR. ON TELE READING FOR MONITORING AT SR 60'S.
--- NOTE | 2016-07-22 00:09 | NUR ---
TELE/RN NOTES PATIENT SITTING IN THE CHAIR, ABLE TO WALK AND VERBALIZE NEEDS. ASSISTANCE AT ALL TIMES FOR SAFETY . VERBALIZED THE NEED TO CHANGE ROOM AND INFORMED CHARGE NURSE FOR ACCOMODATION. INFORM THAT WILL LOOK FOR AVAILABLE ONE BUT IF CAN BE PROVIDED CARE FOR NOW IN PRESENT ROOM. VITAL SIGNS CHECK 147/68, PULSAE-65, OXYGEN SATURATION AT 97% ON RA. WILL CONTINUE TO MONITOR AND PROVIDE NEEDED CARE.
--- NOTE | 2016-07-22 06:44 | NUR ---
tele/rn closing notes PATIENT AWAKE, ALERT X2. CAN SPEAK LITTLE THAI BUT COOPERATIVE TO CARE. ABLE TO AMBULATE BUT INFORM TO CALL FOR ASSISTANCE.WILL ENDORSE TO AM RN FOR CONTINUITY OF CARE.
--- NOTE | 2016-07-22 07:30 | NUR ---
MS RN RECEIVED ON BED,AWAKE,ALERT,ORIENTED X3, NOT IN ANY FORM OF DISTRESS,RESPIRATIONS EVEN AND UNLABORED,NO SOB NOTED, LUNGS ARE CLEAR,ABDOMEN SOFT,POSITIVE BOWEL SOUNDS,DENIES PAIN AT THIS TIME, WILL MONITOR PATIENT'S CONDITION.
[2016-07-22 08:00] VITALS: BP 120/55
--- NOTE | 2016-07-22 08:30 | NUR ---
MS BELL BREAKFAST SERVED,DUE MEDS GIVEN,TOLERATED WELL.
[2016-07-22] MEDS ORDERED: METOPROLOL SUCCINATE 25 MG TAB.SR.24H PO SCH (09:00)
[2016-07-22] MEDS: ATORVASTATIN 10 MG TABLET PO SCH (09:02)
[2016-07-22] MEDS: PANTOPRAZOLE 40 MG TABLET.DR PO SCH (09:03)
[2016-07-22] MEDS: ASPIRIN EC 81 MG TABLET.DR PO SCH (09:03)
[2016-07-22] MEDS: CLOPIDOGREL BISULFATE 75 MG TABLET PO SCH (09:03)
[2016-07-22] MEDS: AMIODARONE HCL 200 MG TABLET PO SCH (09:04)
[2016-07-22] MEDS: ISOSORBIDE MONONITRATE (30MG) 30 MG TAB.SR.24H PO SCH (09:04)
[2016-07-22] MEDS: CARVEDILOL 12.5 MG TABLET PO SCH ×2 (09:04→20:58)
[2016-07-22] MEDS: VALSARTAN 80 MG TABLET PO SCH ×2 (09:05→18:11)
[2016-07-22] MEDS ORDERED: FUROSEMIDE 20 MG/2 ML VIAL IV ONE (10:30)
[2016-07-22 10:57] LABS: CALCIUM, SERUM 8.8 mg/dL (8.5-10.1); CREATININE 1.4 mg/dL (0.6-1.3); POTASSIUM 3.2 mmol/L (3.5-5.1)
[2016-07-22 11:03] LABS: ALBUMIN 3.5 g/dL (3.4-5.0); BILIRUBIN,TOTAL 0.8 mg/dL (0.2-1.0); TOTAL PROTEIN, SERUM 7.6 g/dL (6.4-8.2)
[2016-07-22 12:00] VITALS: BP 120/59
[2016-07-22] MEDS ORDERED: POTASSIUM CHLORIDE 20 MEQ POWDER PACKET PO ONE (13:30)
[2016-07-22 16:00] VITALS: BP 112/62
--- NOTE | 2016-07-22 19:47 | NUR ---
TELE/RN OPENING NOTES PT AWAKE, SITTING UP AT THE EDGE OF THE BED. ON ROOM AIR, NO SOB OR DISTRESS NOTED. ON TELE MONITOR, READING SINUS RHYTHM AT 55. IV TO LAC PATENT AND INTACT. DENIES PAIN. SPEAKS FARO[place] ISLANDER BUT UNDERSTANDS A LITTLE BIT OF UPPER SORBIAN. BED IN LOW/LOCKED POSITION WITH CALL LIGHT IN REACH. BED RAILS UPX2. WILL CONTINUE TO MONITOR
[2016-07-22 20:00] VITALS: BP 118/54
--- NOTE | 2016-07-22 21:04 | NUR ---
TELE/RN NOTES NON-ADMINISTERED 2100 COREG. HEART RATE=54
[2016-07-23] VITALS (7 sets, daily range): BP systolic 107–156; BP diastolic 52–98
--- NOTE | 2016-07-23 00:58 | NUR ---
TELE/RN NOTES PT ASLEEP, BREATHING EVEN AND UNLABORED. WILL CONTINUE TO MONITOR
--- NOTE | 2016-07-23 06:51 | NUR ---
TELE/RN CLOSING NOTES PT AWAKE, ON 2LPM O2 VIA NC, NO S/S OF SOB OR DISTRESS. DENIES PAIN. ON TELE MONITOR, SINUS RHYTHM WITH HEART RATE AT 71. IV TO LAC PATENT AND INTACT. MADE PT COMFORTABLE THROUGHOUT SHIFT. NO CHANGES OVERNIGHT. ALL NEEDS MET AND ATTENDED TO. BED IN LOW/LOCKED POSITION. CALL LIGHT IN REACH. BED RAILS UPX2. WILL ENDORSE TO AM SHIFT CANDIDA.
--- NOTE | 2016-07-23 07:10 | NUR ---
DATABASE DEVELOPMENT PROJECT MANAGER NOTE: RECEIVED PATIENT WHILE RESTING IN BED, A/OX 3. BREATHING EVEN AND UNLABORED ON ROOM AIR. NO SOB, NO DISTRESS. PATIENTS NEEDS ATTENDED TO, SAFETY MEASURES IN PLACE, WILL CONTINUE TO MONITOR.
[2016-07-23] MEDS: ASPIRIN EC 81 MG TABLET.DR PO SCH (08:00)
[2016-07-23] MEDS: CLOPIDOGREL BISULFATE 75 MG TABLET PO SCH (08:00)
[2016-07-23] MEDS: PANTOPRAZOLE 40 MG TABLET.DR PO SCH (08:00)
[2016-07-23] MEDS: VALSARTAN 80 MG TABLET PO SCH ×2 (08:01→16:32)
[2016-07-23] MEDS: CARVEDILOL 12.5 MG TABLET PO SCH ×2 (08:01→20:20)
[2016-07-23] MEDS: AMIODARONE HCL 200 MG TABLET PO SCH (08:01)
[2016-07-23] MEDS: ATORVASTATIN 10 MG TABLET PO SCH (08:01)
[2016-07-23] MEDS: ISOSORBIDE MONONITRATE (30MG) 30 MG TAB.SR.24H PO SCH (09:26)
[2016-07-23 10:43] LABS: CALCIUM, SERUM 8.8 mg/dL (8.5-10.1); CREATININE 1.3 mg/dL (0.6-1.3); POTASSIUM 3.7 mmol/L (3.5-5.1)
[2016-07-23 10:49] LABS: ALBUMIN 3.5 g/dL (3.4-5.0); BILIRUBIN,TOTAL 0.8 mg/dL (0.2-1.0); TOTAL PROTEIN, SERUM 7.4 g/dL (6.4-8.2)
--- NOTE | 2016-07-23 12:30 | NUR ---
PROCUREMENT SPECIALIST NOTE: NO SIGNIFICANT CHANGES IN CONDITION, TOLERATING DIET WELL. WILL CONTINUE TO MONITOR.
[2016-07-23] MEDS ORDERED: FUROSEMIDE 20 MG/2 ML VIAL IV SCH (13:30)
[2016-07-23] MEDS: FUROSEMIDE 40 MG TABLET PO SCH (16:31)
--- NOTE | 2016-07-23 17:17 | NUR ---
MS RN NOTES Dr. Ibarra came seen and examined the patient and ordered to D/C telemetry. all orders carried out and noted. Will continue to monitor accordingly.
--- NOTE | 2016-07-23 17:30 | NUR ---
MS RN NOTE: PATIENT CLEARED FROM TELE MONITORING. TELE MONITOR REMOVED AND RETURNED BACK TO STATION, WILL CONTINUE TO MONITOR.
--- NOTE | 2016-07-23 18:43 | NUR ---
MS RN NOTE: PATIENT REMAINS STABLE IN BED, A/OX 4. BREATHING EVEN AND UNLABORED. NO SOB. PATIENTS NEEDS ATTENDED TO, SAFETY MEASURES IN PLACE, WILL ENDORSE TO TAR LEVELER FOR CANDIDA.
--- NOTE | 2016-07-23 19:35 | NUR ---
MS RN NOTE RECEIVED PATIENT FROM DAY SHIFT, PATIENT IS ALERT AND ORIENTEDX3, AMBULATORY, FRENCH SPEAKER ONLY. DENIES CHEST PAIN OR SOB AT THIS TIME. IV ON LEFT AC IS PATENT AND INTACT, HL ONLY. SRX2, BED IN LOW POSITION, CALL LIGHT WITHIN REACH, WILL CONTINUE TO MONITOR PATIENT.
--- NOTE | 2016-07-24 06:50 | NUR ---
MS RN NOTE PATIENT IS RESTING IN BED COMFORTABLY, DENIES RESPIRATORY DISTRESS OR PAIN AT THIS TIME. IV ON LEFT AC IS PATENT AND INTACT, HL. NO ACUTE DISTRESS NOTED DURING THE BILLING SPECIALIST. WILL ENDORSE TO DAY SHIFT FOR CANDIDA.
--- NOTE | 2016-07-24 07:05 | NUR ---
MS RN NOTE: RECEIVED PATIENT WHILE RESTING IN BED, A/O X 3. PATIENT BREATHING EVEN AND UNLABORED ON ROOM AIR. NO SOB, NO DISTRESS. PATIENT REMAINS COMFORTABLE, ALL NEEDS ATTENDED TO, SAFETY MEASURES IN PLACE, WILL CONTINUE TO MONITOR.
[2016-07-24 07:38] LABS: BASOPHILS % (AUTO) 0.4 % (0.0-2.0); EOSINOPHILS # (AUTO) 0.5 /CMM (0.0-0.7); HEMATOCRIT 44 % (39-51); HEMOGLOBIN 14.4 g/dL (13.5-17.5); LYMPHOCYTES # (AUTO) 2.5 /CMM (0.8-4.8); MEAN CORPUSCULAR HEMOGLOBIN 28 PG (26.0-33.0); MEAN CORPUSCULAR HGB CONC 33 g/dl (31.0-36.0); MEAN CORPUSCULAR VOLUME 85 fL (80-96); MONOCYTES # (AUTO) 0.6 /CMM (0.1-1.30); MONOCYTES % (AUTO) 6.4 % (2.0-12.0); NEUTROPHILS # (AUTO) 6.2 /CMM (1.8-8.9); NEUTROPHILS % (AUTO) 63.2 % (43.0-81.0); PLATELET COUNT (AUTO) 244 /CMM (150-450); RDW COEFFICIENT OF VARIATION 14.9 (11.5-15.0); RED BLOOD CELL COUNT(AUTO) 5.19 MIL/uL (4.5-6.0); WHITE BLOOD COUNT (AUTO) 9.9 K/uL (4.3-11.0)
[2016-07-24 07:42] LABS: CALCIUM, SERUM 8.4 mg/dL (8.5-10.1); CREATININE 1.3 mg/dL (0.6-1.3); POTASSIUM 3.5 mmol/L (3.5-5.1)
[2016-07-24 07:50] LABS: ALBUMIN 3.3 g/dL (3.4-5.0); BILIRUBIN,TOTAL 0.7 mg/dL (0.2-1.0)
[2016-07-24 08:00] VITALS: BP 148/66
[2016-07-24 08:20] VITALS: BP 148/66
[2016-07-24] MEDS: ATORVASTATIN 10 MG TABLET PO SCH (08:21)
[2016-07-24] MEDS: VALSARTAN 80 MG TABLET PO SCH (08:22)
[2016-07-24] MEDS: AMIODARONE HCL 200 MG TABLET PO SCH (08:22)
[2016-07-24] MEDS: PANTOPRAZOLE 40 MG TABLET.DR PO SCH (08:22)
[2016-07-24] MEDS: FUROSEMIDE 40 MG TABLET PO SCH (08:22)
[2016-07-24] MEDS: ISOSORBIDE MONONITRATE (30MG) 30 MG TAB.SR.24H PO SCH (08:22)
[2016-07-24 08:23] VITALS: BP 148/66
[2016-07-24] MEDS: CARVEDILOL 12.5 MG TABLET PO SCH (08:23)
[2016-07-24] MEDS: CLOPIDOGREL BISULFATE 75 MG TABLET PO SCH (08:23)
[2016-07-24] MEDS: ASPIRIN EC 81 MG TABLET.DR PO SCH (08:23)
--- NOTE | 2016-07-24 10:00 | NUR ---
MS RN NOTE: WOUND/SKIN PHOTO'S TAKEN AND PLACED IN CHART, ANTICIPATING DISCHARGE FOR PATIENT.
--- NOTE | 2016-07-24 12:30 | NUR ---
MS RN NOTE: PATIENT HAS BEEN CLEARED FOR DISCHARGE BY DR. QUIROZ. PATIENT REMAINS IN STABLE CONDITION. A/O X 3. BREATHING EVEN AND UNLABORED ON ROOM AIR. NO SOB, NO DISTRESS. PATIENT'S EXIT CARE COMPLETED, ALL FORMS SIGNED, COPIES PLACED IN CHART. PATIENT'S BELONGINGS IN PLACE. DISCHARGE TEACHING PROVIDED TO PATIENT REGARDING MEDICATION AND DIET COMPLIANCE. PATIENT VERBALIZES UNDERSTANDING. PATIENT'S IV REMOVED, ID BAND REMOVED. PATIENT ESCORTED OUT OF HOSPITAL VIA WHEELCHAIR, DISCHARGED HOME, LEFT VIA PRIVATE CAR WITH DAUGHTER.
== END 2016-07-24 12:30 | disposition home or self-care (01) | DRG 291 ==
LOC: ER 12:00 → TELE 13:28 → MED 07-23 17:20
PROVIDERS: ADMIT Internal Medicine; ATTEND Internal Medicine
DX: I11.0 Hypertensive heart disease with heart failure (principal); N17.0 Acute kidney failure with tubular necrosis; I50.23 Acute on chronic systolic (congestive) heart failure; I25.10 Atherosclerotic heart disease of native coronary artery without angina pectoris; J44.9 Chronic obstructive pulmonary disease, unspecified; E78.5 Hyperlipidemia, unspecified; I48.0 Paroxysmal atrial fibrillation; N40.0 Benign prostatic hyperplasia without lower urinary tract symptoms; I25.5 Ischemic cardiomyopathy
CPT/HCPCS: 36415; 36600; 71010-TC; 80048-TC; 80053-TC; 80061-TC; 80076-TC; 82962-TC; 83735-TC; 83880; 84100-TC; 84484-TC; 85025-TC; 85730-TC; 87081-TC; 93307-TC; 94799-TC; A4606; J1940; Z7610

== ENCOUNTER 2018-05-31 13:13 | Emergency (ER) | payer MEDICARE, OTHER ==
[~2018-05-31] VITALS: Ht 175.3 cm; Wt 83.9 kg
[~2018-05-31 13:13] MED LIST changes: +AMLO10TA4 PO; -BENA40TA2 PO; +BENA40TA8 PO; +CLON0.1T14 PO; +CLOP75TA15 PO; -CLOP75TA2 PO; +FINA5TAB4 PO; -METO-302 PO; +OMEG1CAP55 PO; +ROFL500T PO; -ROSU10TA PO; +ROSU10TA2 PO; +TEMA30CA PO; -VALS160T24 PO; +VALS160T29 PO
--- NOTE | 2018-05-31 13:32 | NUR ---
BIB FRIEND FOR SCROTAL SWELLING X 3 YEARS,GETTING WORSE, TO ER BED 7, HOOKED TO MONITOR, CHANGED TO GOWN, AWAITING MD LOCKWOOD
[2018-05-31 13:52] LABS: BASOPHILS # (AUTO) 0.1 /CMM (0.0-0.2); BASOPHILS % (AUTO) 1.3 % (0.0-2.0); EOSINOPHILS % (AUTO) 2.4 % (0.0-6.0); HEMATOCRIT 48 % (39-51); HEMOGLOBIN 15.7 g/dL (13.5-17.5); LYMPHOCYTES # (AUTO) 1.5 /CMM (0.8-4.8); LYMPHOCYTES % (AUTO) 16.8 % (20.0-44.0); MEAN CORPUSCULAR HGB CONC 33 g/dl (31.0-36.0); MEAN CORPUSCULAR VOLUME 93 fL (80-96); MONOCYTES # (AUTO) 0.4 /CMM (0.1-1.30); MONOCYTES % (AUTO) 4.5 % (2.0-12.0); NEUTROPHILS # (AUTO) 6.8 /CMM (1.8-8.9); PLATELET COUNT (AUTO) 161 /CMM (150-450); RED BLOOD CELL COUNT(AUTO) 5.18 MIL/uL (4.5-6.0); WHITE BLOOD COUNT (AUTO) 9.1 K/uL (4.3-11.0)
[2018-05-31 13:59] LABS: CARBON DIOXIDE 31 mmol/L (21-32); CHLORIDE 103 mmol/L (98-107); GLUCOSE 104 mg/dL (74-106); POTASSIUM 3.9 mmol/L (3.5-5.1); SODIUM SERUM 141 mmol/L (136-145); UREA NITROGEN, BLOOD 19 mg/dL (7-18)
[2018-05-31 14:12] LABS: ALANINE AMINOTRANSFERASE 15 U/L (12-78); ALBUMIN 3.5 g/dL (3.4-5.0); ALKALINE PHOSPHATASE 44 U/L (46-116); ASPARTATE AMINOTRANSFERASE 19 U/L (15-37); B-TYPE NATRIURETIC PEPTIDE 3133 PG/ML (0-125); BILIRUBIN,DIRECT 0.2 mg/dL (0.0-0.2); TOTAL PROTEIN, SERUM 6.4 g/dL (6.4-8.2)
--- NOTE | 2018-05-31 14:16 | NUR ---
DR SPEARS AT BEDSIDE
--- NOTE | 2018-05-31 14:25 | NUR ---
URINE SAMPLE SENT TO LAB
--- NOTE | 2018-05-31 14:29 | NUR ---
US TECH AT BEDSIDE
[2018-05-31 14:46] LABS: APPEARANCE,URINE Clear (CLEAR); BILIRUBIN,URINE Negative (NEGATIVE); BLOOD, URINE Negative Ery/uL (NEGATIVE); COLOR,URINE Light yellow (YELLOW); KETONES,URINE Negative (NEGATIVE); LEUKOCYTE ESTERASE ,URINE Small (NEGATIVE); NITRITE, URINE Negative (NEGATIVE); PH,URINE 6.5 (5.0-8.0); PROTEIN,URINE Negative (NEGATIVE); UGLUCOSE Negative (NEGATIVE); UROBILINOGEN,URINE 0.2 EU/dL (0.2)
[2018-05-31 14:57] LABS: RBC,URINE 0-2 /HPF (0-2)
[2018-05-31 14:58] LABS: BACTERIA,URINE Rare /HPF (None Seen); SQUAMOUS EPITHELIAL CELL,UR Rare /HPF (None Seen); WBC,URINE 0-3 /HPF (0-3)
[2018-05-31] MEDS ORDERED: FUROSEMIDE 40 MG/4 ML VIAL IV ONE (15:30)
[2018-05-31] MEDS ORDERED: FUROSEMIDE 40 MG/4 ML VIAL ONE (15:42)
--- NOTE | 2018-05-31 15:50 | NUR ---
CALLED AND LEFT A MSG TO DR. FRANCO FOR CONSULT. WAITING FOR CALL BACK.
--- NOTE | 2018-05-31 15:53 | NUR ---
PANEL ON-CALL PAGED
--- NOTE | 2018-05-31 15:54 | NUR ---
CALLED DR. CHARLA FRANCO SPECIALIST - UROLOGY [phone] WITH MSG
[2018-05-31] MEDS ORDERED: CEFTRIAXONE 1GM BAG (ER ONLY) 1 GM/50 ML PIGGYBACK IV ONE (16:00)
[2018-05-31] MEDS ORDERED: ATOR40TA PO (16:05)
[2018-05-31] MEDS ORDERED: NIFE60TA69 PO (16:05)
[2018-05-31] MEDS ORDERED: POTA10TA15 PO (16:05)
[2018-05-31] MEDS ORDERED: CEFTRIAXONE 1GM BAG (ER ONLY) 50 ML IV ONE (16:07)
--- NOTE | 2018-05-31 16:31 | NUR ---
GOT BED 119-2
--- NOTE | 2018-05-31 18:36 | NUR ---
Patient discharged to home in stable condition. Written and verbal after care instructions given. Patient verbalizes understanding of instruction. IV removed. Catheter intact and site benign. Pressure and 4x4 applied to site. No bleeding noted.
[2018-05-31 18:37] VITALS: BP 120/69
== END 2018-05-31 18:38 | disposition home or self-care (01) ==
LOC: ER 13:17
DX: R19.09 Other intra-abdominal and pelvic swelling, mass and lump (principal); N45.1 Epididymitis; J44.9 Chronic obstructive pulmonary disease, unspecified; I11.0 Hypertensive heart disease with heart failure; I50.9 Heart failure, unspecified; Z79.82 Long term (current) use of aspirin
CPT/HCPCS: 36415; 71045; 76870; 80048; 80076; 81001; 83880; 85025; 96365; 96375; 99284; A4606; J0696; J1940; 81000-TC